=== PATIENT | male | born 1990 | race Caucasian/White ===

== ENCOUNTER 2017-05-19 20:50 | Emergency (ER) | payer SELFPAY | END 2017-05-19 21:51 | disposition left against medical advice (07) | LOC: JP.ED 20:50 | DX: Z53.21 Procedure and treatment not carried out due to patient leaving prior to being seen by health care provider (principal) | CPT/HCPCS: 99281 ==

== ENCOUNTER 2017-05-20 02:30 | Emergency (ER) | payer SELFPAY ==
[2017-05-20 02:45] VITALS: BP 135/84
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
== END 2017-05-20 03:08 | disposition home or self-care (01) ==
LOC: JP.ED 02:30
DX: K04.7 Periapical abscess without sinus (principal)
CPT/HCPCS: 99283

== ENCOUNTER 2017-05-21 01:15 | Emergency (ER) | payer SELFPAY ==
[2017-05-21 02:15] VITALS: BP 156/110
[2017-05-21] MEDS ORDERED: cefTRIAXone 1 GM, Lidocaine 1% 2.1 ML IM ONE ×2 (02:45)
[2017-05-21] MEDS ORDERED: Ketorolac 60 MG/2 ML SDV IM ONE (02:45)
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
== END 2017-05-21 03:55 | disposition home or self-care (01) ==
LOC: JP.ED 01:15
DX: F15.90 Other stimulant use, unspecified, uncomplicated (principal)
CPT/HCPCS: 80305; 81001; 96372; 99283; J0696; J1885

== ENCOUNTER 2017-11-30 20:13 | Emergency (ER) | payer MEDICAID ==
[2017-11-30 21:33] VITALS: BP 160/104
[2017-11-30] MEDS ORDERED: Bacitracin Oint 1 GM U/D Packet TOP ONE (22:15)
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
== END 2017-11-30 22:30 | disposition home or self-care (01) ==
LOC: JP.ED 20:13
DX: S01.01XA Laceration without foreign body of scalp, initial encounter (principal); S09.90XA Unspecified injury of head, initial encounter; W20.8XXA Other cause of strike by thrown, projected or falling object, initial encounter
CPT/HCPCS: 12001; 99283-25